=== PATIENT | male | born 1990 | race Caucasian/White ===

== ENCOUNTER 2017-07-06 17:31 | Emergency (ER) | payer OTHER ==
[~2017-07-06] VITALS: Ht 177.8 cm; Wt 72.6 kg
[2017-07-06 17:58] VITALS: BP 160/100; Ht 177.8 cm; Wt 72.6 kg
== END 2017-07-06 20:14 | disposition home or self-care (01) ==
LOC: ED 17:31
DX: S93.402A Sprain of unspecified ligament of left ankle, initial encounter (principal); X50.1XXA Overexertion from prolonged static or awkward postures, initial encounter; Y93.66 Activity, soccer; Y92.89 Other specified places as the place of occurrence of the external cause; Y99.8 Other external cause status